=== PATIENT | female | born 1935 | race Caucasian/White ===

== ENCOUNTER → 2018-11-07 | Day surgery (SDC) | payer MEDICARE, OTHER ==
--- NOTE | 2018-11-01 15:16 | Rehab Joint Replacement Pre-Op ---
Rehab Joint Replacement Pre-Op - Pre-Op Visit Reviewed Items Scheduled for Post Op Visit: Yes Scheduled Post Op Visit Date: 11/07/18 Fran Hose/Garment Measure THR - Thigh High: Yes (XX Large regular) Exercise Reviewed: Yes Stair Climbing: Yes Cane/Walker/Crutch Training: Yes Vend Equipment - Cane or Walker and OT Kit: N/A List of Venders in the Area: N/A Shower Chair Transfers: Yes Car Transfers: Yes Bed Transfers: Yes Medical History Forms Issued: N/A Functional Scale Forms Issued: N/A Pre-Operative Intake Form - Scheduled Procedure Type of Surgical Procedure: Total Knee - Right - Patient Living Situation Current Living Situation: Patient Lives Alone Current Housing Situation: One Story Home - Entrance Detail Current Housing Entrance: Hand Rails - Two, Other (3 steps, deck landing, 1 step with 2 handrails) Number of Steps: 4 (total) - Bathroom Detail Bathroom Setup: Walk-In Shower Toilet Setup: Standard Height Toilet, Grab Bars Not Present - Post-Op Home Assistance Pt has meals following surgery?: No Pt has transportation following surgery?: No - Equipment Detail Currently Own/Have Access To: Walker (front wheeled walker), Cane - Work Status Current Work Status: Retired - Additional Detail Patient is scheduled for the following: Inpatient Rehab (Patient would like to go to Rehab as she did for her first total knee. CM notified.)
[~2018-11-07] MED LIST: ACETAMINOPHEN 500 MG TABLET PO ONE; CELECOXIB 100 MG CAPSULE PO ONE; CLINDAMYCIN PHOS/D5W 900MG 900 MG/50 ML BAG IVPB ONE; FAMOTIDINE 20MG TABLET PO ONE; METOCLOPRAMIDE 10 MG TABLET PO ONE; SCOPOLAMINE 1 PATCH TDSY TD ONE; VANCOMYCIN 1GM/200ML PREMIX 1 GM/200 ML PIGGYBACK IVPB ONE
[2018-11-07 06:33] LABS: INR 1.2; PROTHROMBIN TIME (PATIENT) 11.9 SECONDS (9.5-12.1)
[2018-11-07 06:39] LABS: ABO GROUP A; RH TYPE POSITIVE
[2018-11-07 06:53] LABS: ANTIBODY SCREEN NEGATIVE (NEGATIVE)
[2018-11-07 07:38] LABS: URINE APPEARANCE CLEAR; URINE BILIRUBIN NEGATIVE (NEGATIVE); URINE BLOOD TRACE-I (NEGATIVE); URINE COLOR YELLOW; URINE GLUCOSE (UA) NEGATIVE (NEGATIVE); URINE KETONE NEGATIVE (NEGATIVE); URINE LEUKOCYTE ESTERASE TRACE (NEGATIVE); URINE NITRITE POSITIVE (NEGATIVE); URINE PROTEIN NEGATIVE (NEGATIVE); URINE UROBILINOGEN 0.2 E.U./dL (0.20 - 1.00)
[2018-11-07 07:45] LABS: URINE BACTERIA 4+; URINE EPITHELIAL CELLS RARE (FEW); URINE RBC 0 - 2 (NONE SEEN)
== END | disposition home or self-care (01) ==
LOC: SUR 06:04
PROVIDERS: ATTEND Orthopaedic Surgery
DX: Z53.9 Procedure and treatment not carried out, unspecified reason (principal)
CPT/HCPCS: 85730; 85610; 81001; 86900; 86901; 86850; J3370

== ENCOUNTER 2018-11-28 10:10 | Inpatient (IN) | payer MEDICARE, OTHER ==
[~2018-11-28 10:10] MED LIST changes: +ACETAMINOPHEN 1,000 MG/100 ML BTL IVPB ONE
[2018-11-28] MEDS ORDERED: DEXAMETHASONE 4 MG/ML 1ML VIAL IVP ONE (10:11)
[2018-11-28] MEDS ORDERED: TRANEXAMIC ACID 1,000 MG/10 ML ML IV ONE (10:11)
[2018-11-28] MEDS ORDERED: ROPIVACAINE HCL (NAROPIN) /PF 5MG/ML 20ML VIAL IV ONE (10:11)
[2018-11-28 10:37] LABS: INR 1.4; PROTHROMBIN TIME (PATIENT) 14.4 SECONDS (9.5-12.1)
[2018-11-28 11:06] LABS: ABO GROUP A; ANTIBODY SCREEN NEGATIVE (NEGATIVE); RH TYPE POSITIVE
[2018-11-28] MEDS ORDERED: TRAMADOL HCL 50 MG TABLET PO PRN ×2 (12:13)
[2018-11-28] MEDS ORDERED: HYDROCODONE/APAP 5/325MG TABLET PO PRN ×2 (12:13)
[2018-11-28] MEDS ORDERED: AL HYDROX/MAG HYDROX 30ML UD PO PRN (12:13)
[2018-11-28] MEDS ORDERED: DIPHENHYDRAMINE HCL 25 MG CAPSULE PO PRN (12:13)
[2018-11-28] MEDS ORDERED: ZOLPIDEM TARTRATE 5 MG TABLET PO PRN (12:13)
[2018-11-28] MEDS ORDERED: KETOROLAC 30 MG/ML VIAL IVP PRN ×2 (12:13)
[2018-11-28] MEDS ORDERED: ACETAMINOPHEN W/ CODEINE 300MG/60MG TABLET PO PRN ×2 (12:13)
[2018-11-28] MEDS ORDERED: MAGNESIUM HYDROXIDE 30 ML UDC PO PRN (12:13)
[2018-11-28] MEDS ORDERED: ONDANSETRON HCL IV 4 MG/2 ML VIAL IVP PRN (12:13)
[2018-11-28] MEDS ORDERED: PROMETHAZINE HCL 12.5 MG in 0.9 % SODIUM CHLORIDE 100ML 50 ML IVPB PRN (12:13)
[2018-11-28] MEDS ORDERED: METOCLOPRAMIDE HCL 10 MG/2 ML VIAL IVP PRN (12:13)
[2018-11-28] MEDS ORDERED: ACETAMINOPHEN W/ CODEINE 300MG/30MG TABLET PO PRN ×2 (12:13)
[2018-11-28] MEDS ORDERED: HYDROCODONE/APAP 7.5/325MG TABLET PO PRN (12:13)
[2018-11-28] MEDS ORDERED: BISACODYL 10 MG SUPP RC PRN (12:13)
[2018-11-28] MEDS ORDERED: HYDROMORPHONE HCL 2 MG/ML VIAL IM PRN ×2 (12:13)
[2018-11-28] MEDS ORDERED: NALOXONE 0.4 MG/1 ML VIAL IVP PRN (12:13)
[2018-11-28] MEDS ORDERED: 0.9 % SODIUM CHLORIDE 1000ML 1,000 ML IV ONE ×2 (13:11→13:54)
[2018-11-28] MEDS ORDERED: BUPIVACAINE LIPOSOME 266MG/20ML VIAL SQ ONE (13:40)
[2018-11-28] MEDS ORDERED: BUPIVACAINE 0.5% W/EPI MPF 30 ML VIAL SQ ONE (13:40)
[2018-11-28] MEDS ORDERED: SEVOFLURANE 250 ML INH ONE (14:00)
[2018-11-28] MEDS ORDERED: FENTANYL PF 100MCG/2ML VIAL IV ONE (14:00)
[2018-11-28] MEDS ORDERED: LIDOCAINE 2% MDV (20MG/ML) 20ML VIAL IV ONE (14:00)
[2018-11-28] MEDS ORDERED: PROPOFOL 10 MG/ML VIAL IV ONE (14:00)
[2018-11-28] MEDS ORDERED: KETAMINE HCL 100MG/1ML VIAL INJ ONE (14:00)
[2018-11-28] MEDS ORDERED: GLYCOPYRROLATE 0.2 MG/ML ML IV ONE (14:00)
[2018-11-28] MEDS ORDERED: HYDROMORPHONE HCL 2 MG/ML VIAL IV ONE (14:00)
[2018-11-28] MEDS ORDERED: DEXTROSE 5 % AND 0.9 % NACL 1,000 ML IV PRN (14:30)
[2018-11-28] MEDS ORDERED: HYDROMORPHONE HCL 2 MG/ML VIAL IVP ONE (15:10)
[2018-11-28] MEDS: 0.9 % SODIUM CHLORIDE 1000ML 1,000 ML IV SCH (18:02)
[2018-11-28] MEDS: ENOXAPARIN 100 MG/ML SYR SQ SCH (22:05)
[2018-11-28] MEDS: FERROUS SULFATE 325 MG TAB PO SCH (22:07)
[2018-11-28] MEDS: HYDROCODONE/APAP 7.5/325MG TABLET PO PRN (22:07)
[2018-11-28] MEDS: WARFARIN 1 MG TABLET PO SCH (22:07)
[2018-11-28] MEDS: DOCUSATE SODIUM 100 MG CAPSULE PO SCH (22:07)
[2018-11-28] MEDS: SIMVASTATIN 20 MG TABLET PO SCH (22:08)
[2018-11-28] MEDS: VANCOMYCIN 1GM/200ML PREMIX 1 GM/200 ML PIGGYBACK IVPB SCH (22:13)
[2018-11-29] MEDS: 0.9 % SODIUM CHLORIDE 1000ML 1,000 ML IV SCH ×2 (03:45→23:08)
[2018-11-29] MEDS: HYDROCODONE/APAP 7.5/325MG TABLET PO PRN ×3 (04:22→23:08)
[2018-11-29 07:34] LABS: HEMOGLOBIN 9.2 gm/dl (11.6-16.0)
--- NOTE | 2018-11-29 09:47 | Rehab Evaluation ---
Patient Information - Patient Information Diagnosis: R knee OA Ordered Treatment: PT Evaluate and Treat Status: Initial Evaluation Surgery: Yes (R TKA) Date of Surgery: 11/29/18 Past Medical/Surgical Hx: PAST MEDICAL/SURGICAL HISTORY Past Surgical History LTKA 2016 RIGHT SHOULDER REPLACEMENT 2014 RIGHT SHOULDER SCOPE STOMACH EGD'S C SCOPES BILAT KNEE SCOPES PMH - Respiratory Hx Respiratory Disorders Yes Hx Pulmonary Embolism Yes: SEVERAL EPISODES LAST ONE 2005 ON COUMADIN PMH - Cardiovascular Hx Cardiovascular Disorders Yes Hx Deep Vein Thrombosis Yes: HX OF Hx Edema Yes Hx Hypertension Yes: CONTROLLED WITH MEDS Hx Irregular Heartbeat Yes: ONE EPISODE OF A FIB RESOLVED ON ITS OWN 1. 5 YRS AGO Exercise Tolerance Poor PMH - Neuro Hx Neurological Disorders No PMH - GI Hx Gastrointestinal Disorders Yes Hx Ulcer Yes: HX OF A LONG TIME AGO PMH - Hx Genitourinary Disorders Yes Hx Bladder Problem Yes: INCONTINENCE WEARS A PAD Hx Renal Disease Yes: CKD STAGE 3 DX'D Hx Urinary Tract Infection Yes: resolved PMH - Endocrine Hx Endocrine Disorders No PMH - Musculoskeletal Hx Musculoskeletal Disorders Yes Hx Arthritis Yes: RIGHT KNEE POSSIBLY RIGHT HIP Hx Gout Yes: OCCASSIONAL FLARE UP PMH - Psych Hx Psychiatric Problems No PMH - Hematology/Oncology Hx Hematology/Oncology Yes Disorders Hx Bruising Yes: ON COUMADIN Hx Clotting Problems Yes: HX OF PE AND DVT Premorbid Status: Detail (The patient was independent with mobility prior to surgery.) Social History: Detail (The patient lives alone in a 2 story house with 3 steps ,a deck and 1 step at the enterance with two hand rails. The patient's bedrooms and bathrooms are on the main floor. The bathroom is equipped with : walk in shower, shower bench, hand held shower, elevated toilet. No grab bars are present in the bathroom. The patient has a 2 wheeled walker and single point cane.) Precautions: [place], Fall, Other (WBAT on the R LE.) - Time With Patient Total Time Spent With Patient (Min): 30 Treatment Procedures: Detail (Initial Evaluation, low complexity, gait training and instruction in HEP) Subjective Information - Subjective Information Per Patient (The patient had complaints of R hip initially but no complaints of knee pain.) Objective Data - Mental Status Patient Orientation: Oriented x3 - Visual Perception Appears within normal limits for therapeutic activities - ROM Not within normal limits (The patient's R knee AROM is limited s/p as to be expected. All other AROM is WNL.) - Strength/Tone Not within normal limits (The patient's R LE strength was not tested s/p surgery however functionally, weakness is noted in quadriceps and hip flexors (patient has difficulty completing a SLR). The patient's L LE strength was WFL.) - Bed Mobility Independent (The patient was independent with supine to sit and required minimal assist to lift R LE with sit to supine.) - Transfers Independent (The patient was independent with sit to and from stand transfer.) - Balance Balance Sitting: Good Balance Standing: Good - Sensation Intact - Gait Detail (The patient ambulated with front wheeled walker a distance of 25 feet x 1 WBAT on the R LE with supervision/ assist of 1 to handle equipment only with shortness of breath noted.) Therapy Assessment - Therapy Assessment Detail (The patient ambulated household distances with supervision and increased fatigue after ambulation. The patient required min. assist with sit to supine. Feel the patient will progress well with mobility as her endurance for physical activity improves.) Patient Education - Patient Education Teaching Topic: Exercise/Activity (The patient completed TKA exercises included: ankle pumps, quad sets, hamstring sets, gluteal sets , heel slides and assisted SLR with use of strap.) Response: Return Demonstration Teaching Method: Demonstration, Handout Teaching Recipient: Patient Barriers To Learning: Age Related Problem List - Problem List Physical Therapy Problem List: Detail (1)Decreased ability to complete prolonged physical activity 2) Decreased R knee AROM and strength 3) Impaired ambulation s/p surgery) Goals - Goals Physical Therapy Goals: 1) The patient will ambulate on stairs with supervision/CG for safety using proper technique. 2) The patient will ambulate 100 feet with WBAT on the R LE independently with front wheeled walker. Prognosis - Prognosis Good Plan - Plan Physical Therapy Plan: PT 1-3 sessions for gait training on levels and stairs.
[2018-11-29] MEDS: FERROUS SULFATE 325 MG TAB PO SCH ×2 (10:00→21:51)
[2018-11-29] MEDS: METOPROLOL SUCC 50 MG TABLET PO SCH (10:00)
[2018-11-29] MEDS ORDERED: RIVAROXABAN 10 MG TABLET PO SCH (10:00)
[2018-11-29] MEDS: BUMETANIDE 1 MG TABLET PO SCH (10:00)
[2018-11-29] MEDS: DOCUSATE SODIUM 100 MG CAPSULE PO SCH ×2 (10:00→21:51)
[2018-11-29] MEDS: VANCOMYCIN 1GM/200ML PREMIX 1 GM/200 ML PIGGYBACK IVPB SCH (10:33)
--- NOTE | 2018-11-29 12:08 | Rehab Evaluation ---
Patient Information - Patient Information Diagnosis: R knee OA Ordered Treatment: OT Evaluate and Treat Status: Initial Evaluation Surgery: Yes (R TKA) Date of Surgery: 11/29/18 Past Medical/Surgical Hx: PAST MEDICAL/SURGICAL HISTORY Past Surgical History LTKA 2016 RIGHT SHOULDER REPLACEMENT 2014 RIGHT SHOULDER SCOPE STOMACH EGD'S C SCOPES BILAT KNEE SCOPES PMH - Respiratory Hx Respiratory Disorders Yes Hx Pulmonary Embolism Yes: SEVERAL EPISODES LAST ONE 2005 ON COUMADIN PMH - Cardiovascular Hx Cardiovascular Disorders Yes Hx Deep Vein Thrombosis Yes: HX OF Hx Edema Yes Hx Hypertension Yes: CONTROLLED WITH MEDS Hx Irregular Heartbeat Yes: ONE EPISODE OF A FIB RESOLVED ON ITS OWN 1. 5 YRS AGO Exercise Tolerance Poor PMH - Neuro Hx Neurological Disorders No PMH - GI Hx Gastrointestinal Disorders Yes Hx Ulcer Yes: HX OF A LONG TIME AGO PMH - Hx Genitourinary Disorders Yes Hx Bladder Problem Yes: INCONTINENCE WEARS A PAD Hx Renal Disease Yes: CKD STAGE 3 DX'D Hx Urinary Tract Infection Yes: resolved PMH - Endocrine Hx Endocrine Disorders No PMH - Musculoskeletal Hx Musculoskeletal Disorders Yes Hx Arthritis Yes: RIGHT KNEE POSSIBLY RIGHT HIP Hx Gout Yes: OCCASSIONAL FLARE UP PMH - Psych Hx Psychiatric Problems No PMH - Hematology/Oncology Hx Hematology/Oncology Yes Disorders Hx Bruising Yes: ON COUMADIN Hx Clotting Problems Yes: HX OF PE AND DVT Premorbid Status: Detail (The patient was independent with all ADLs and functional mobility and driving prior to surgery.) Social History: Detail (The patient lives alone in a 2 story house with 3 steps, a deck and 1 step at the enterance with bilateral hand rails that are narrow enough to hold onto both. The patient's bedrooms and bathrooms are on the main floor. The bathroom is equipped with a walk in shower, shower bench, hand held shower, elevated toilet. No grab bars are present in the bathroom. The patient has a 2 wheeled walker and single point cane. She also has a blueprinter.) Precautions: [place], Fall, Other (WBAT on the R LE.) - Time With Patient Total Time Spent With Patient (Min): 33 (1 eval, 1 adl) Treatment Procedures: Detail (OT eval: low complexity) Subjective Information - Subjective Information Per Patient (Ok to see per [facility], Pt agreeable to OT eval and Tx.) Objective Data - Pain Pain Present: Yes Pain Scale Used: Numeric (1 - 10) (4-5/10, RN present and offering pain meds) - Mental Status Patient Orientation: Oriented x3 - Visual Perception Appears within normal limits for therapeutic activities - ROM Not within normal limits (L UE WNL, R shld ~35* flexion and abduction d/t previous shld Sx otherwise WNL) - Strength/Tone Within normal limits - Coordination Appears within normal limits for therapeutic activities - Bed Mobility Independent (With increased effort for EOB >< supine and for laterally scooting toward HOB in supine with verbal instruction for technique.), Needs Assist - Transfers Independent (Sit to stand from low surfaces to FWW with MIN assist and increased effort.) - Balance Balance Sitting: Fair (While donning/doffing socks at EOB) Balance Standing: Fair (Standing pant mgmt with alternating uni support on walker.) - Sensation Intact - Gait Detail (Functional mobility within bedroom with supervision and FWW.) - ADL's/IADL's Detail (OT educated Pt on adaptive techniques for LB dressing, Pt requires verbal instruction throughout for problem solving as well as tactile cueing for use of sock aide post demonstration. OT educated Pt on safety with bathroom and kitchen safety as well as general safety precautions at home, Pt verbalizes understanding.) Therapy Assessment - Therapy Assessment Detail (Pt continues to require MIN assist grossly, independent at baseline living alone without a willing/able caregiver. May benefit from [facility] vs. home with [facility] pending progress.) Patient Education - Patient Education Teaching Topic: Equipment Use Response: Return Demonstration, Reinforcement Needed, Verbalize Understanding Teaching Method: Discussion, Demonstration Teaching Recipient: Patient Barriers To Learning: None Problem List - Problem List Physical Therapy Problem List: Detail (1)Decreased ability to complete prolonged physical activity 2) Decreased R knee AROM and strength 3) Impaired ambulation s/p surgery) Occupational Therapy Problem List: Detail (1. Pt requires assist for functional TFs from low surfaces and has a low toilet at home. 2. Pt requires assist for LB dressing. 3. Pt demos SOB during functional tasks, however is not aware of/ does not initiate energy conservation strategies) Goals - Goals Physical Therapy Goals: 1) The patient will ambulate on stairs with supervision/CG for safety using proper technique. 2) The patient will ambulate 100 feet with WBAT on the R LE independently with front wheeled walker. Occupational Therapy Goals: 1. Pt will be MOD I with functional TFs from low surfaces with FWW 2. Pt will be MOD I with LB dressing, using AE as needed. 3. Pt will demo self-initiation of energy conservation and breathing strategies when feeling SOB throughout Tx. Prognosis - Prognosis Good Plan - Plan Physical Therapy Plan: PT 1-3 sessions for gait training on levels and stairs. Occupational Therapy Plan: OT 1-2 session to address goals.
[2018-11-29] MEDS: CELECOXIB 100 MG CAPSULE PO SCH (12:59)
--- NOTE | 2018-11-29 13:37 | Physical Therapy Tx Note ---
Physical Therapy Tx Note - Treatment Note Physical Therapy Tx Note: Detail (Patient refused to ambulate in [facility] this a fternoon.) Physical Therapy Problem List: Detail (1)Decreased ability to complete prolonged physical activity 2) Decreased R knee AROM and strength 3) Impaired ambulation s/p surgery) Physical Therapy Goals: 1) The patient will ambulate on stairs with supervision/CG for safety using proper technique. 2) The patient will ambulate 100 feet with WBAT on the R LE independently with front wheeled walker. Physical Therapy Plan: PT 1-3 sessions for gait training on levels and stairs.
--- NOTE | 2018-11-29 15:30 | Operative Note ---
DATE OF SURGERY: 11/28/2018 PREOPERATIVE DIAGNOSIS: End-stage right knee arthrosis. POSTOPERATIVE DIAGNOSIS: End-stage right knee arthrosis. OPERATION: Right total knee arthroplasty. SURGEON: Eze Billy MD ANESTHESIA: Spinal. ANESTHESIA PROVIDER: ITALIA Holden COMPLICATIONS: None. ESTIMATED BLOOD LOSS: Minimal, 100 mL. TOURNIQUET TIME: No tourniquet. OPERATIVE FINDINGS: Ksfu-sk-jice medial compartment arthrosis. COMPONENTS PLACED: A [employer]hew Journey II Oxinium total knee arthroplasty system, size 6 femoral component, Oxinium size 4 tibial baseplate, a 13 mm tibial poly insert, and 29 mm cemented patellar component. INDICATIONS: This is an 83-year-old female who is well known to me. She is status post multiple procedures by me including shoulder arthroscopy, total shoulder replacement, total knee replacement on the other side years ago. 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 The patient had also in addition undergone approximately a week of bridging from her Coumadin to Lovenox in preparation for the procedure and getting cleared for the procedure that I felt was unnecessarily canceled. Had a re-procedure, she has been scheduled, she has had a positive UA but she had no symptoms at the time, wanted to proceed; however, they would not proceed. Therefore, she was rescheduled. I explained and proceeded with giving her gentamicin as well as normal antibiotics given the chronic nature and asymmetric bacteremia she has. I explained all risks and benefits in detail for the diagnosis and procedure including but not limited to infection, nerve injury, vessel injury, persistent pain, stiffness, numbness, tingling in the knee, periprosthetic fracture, need for resection arthroplasty if components become infected or loosen, nerve injury, vessel injury, blood clot, need for anticoagulation to prevent blood clots and risks associated with these medications, and need for further procedures. All his questions were answered. Rehab and healing course was outlined. She agreed to proceed. PROCEDURE: The patient brought to the OR, placed in the supine position, prepped for surgery. Spinal anesthesia induced. The right lower extremity and knee were prepped and draped in sterile fashion. Right knee prepped again with Chloraprep after it was draped. Intraoperative timeout was performed. The leg was exsanguinated with Esmarch. It was infiltrated with 0.5% Marcaine with epinephrine. No tourniquet was used. Skin and subcutaneous tissue dissected down to the capsule and cauterized carefully each layer with our Aquamantys in this tourniquet-less procedure. Incised the capsule medially around the medial border of the patella to the tibial tubercle. Incised the vastus medialis in line with its fibers in a mid vastus approach. Everted the patella, partially resected the retropatellar fat pad, elevated the capsule subperiosteally and medially, and flexed the knee. She had [id number] medial component arthrosis. Then inserted the intramedullary drill guide and then inserted intramedullary guide lico, the 6-degree cutting block. Aligned the distal femoral condyles, pinned it in position, +2 mm position, cut the distal femoral condyles. Through the previously-placed pin sites, we placed the 5-in-1 cutting jig, dialed the anterior cut so it would come out flush without notching. We cut that cut, and it was a good flush cut. Then pinned it and cut the remainder of the chamfer cuts in the usual fashion. Next, placed the femoral trial femur, centered it, pinned it, removed osteophytes off the periphery. Inserted the resection collet and reamed out and box osteotomed the cruciate bone block. Next, attention was turned to the tibia. Exposed the tibia, seated the external alignment jig spikes in the tubercular groove 2 fingerbreadths distally and made a reference for a 7 mm cut off the higher medial plateau. We then pinned the cutting jig provisionally to the anterior-posterior pins. We alignment of the cutting jig using a drop lico centered on the tibial anatomic axis and then cross-pinned completing fixation, and cut the tibia. Next, we used a curved osteotome, removed osteophytes off the posterior condyles and basically checked the flexion/extension gaps with the insert. We basically sized up to a size 13. This allowed for 2-3 mm of varus/valgus laxity in flexion/extension. Overall alignment of cuts in extension was anatomic valgus orientation with alignment lico centered on the hip joint and ankle joint. Next, took the knee in flexion and sized the tibial baseplate. Size of tibial baseplate was size 4. Replaced all trial components, set the rotation tibial baseplate again extension using the alignment lico centered on hip joint and ankle joint. Marked josué on the anterior tibial cortex off the laser josué. Attention was turned to the patella, measured the patella, set the cutting jig to allow for a 9 mm cut on the patella, cut it, and remeasured it. It was right on. Chamfered off lateral patellar facet, medialized as much as possible, drilled 3 peg holes, sized it to be 29 mm. We did a trial range of motion. Patella tracked nicely hands free. Mixed cement. Next, placed a bone plug in the femoral canal hole with the drill bit. Next we started with the tibial baseplate, made the tibial cut, pinned it, and drilled out, keel punched the keel hole. Next, then placed a bone plus in the femoral canal and the drill in the tibial keel hole and changed gloves, brought in clean sheet. Copiously irrigated bony surfaces, pulse lavage, antibiotic solution and precut bolsters and packed down the femoral component and then with precut bolsters packed down the tibial component removing excess cement in the femoral component, removing excess cement. Placed the trial tibial poly liner, held the knee in extension, clamped down the patella component until the cement hardened removing excess cement. Next, took the knee in flexion, distracted the knee with the bone hook and sponge. We cauterized the posterior capsule using alexsander Ansari. We then injected our 0.5% Marcaine with epinephrine, tranexamic acid, and Exparel mixture in the posterior capsule medial and lateral working out superficially subcutaneous vastus medialis. Next, closed the capsule in flexion using running #2 quill suture again cauterizing and then closed skin with several buried 2-0 Vicryl securely. Placed a provisional dressing with Acticoat. It will be changed to MALINA dressing prior to discharge, likely in 3 days to rehab. Sterile dressing applied. Jesus wrap. The patient tolerated the procedure well. No intraoperative complications. Sponge, needle, and blade counts correct. Recovery stable, neurovascularly intact. Discharged to the floor. Follow up in 2 weeks after discharge rehab. LIU
[2018-11-29] MEDS ORDERED: VANCOMYCIN HCL 1 GM VIAL IVPB ONE (16:05)
[2018-11-29] MEDS: SIMVASTATIN 20 MG TABLET PO SCH (21:51)
[2018-11-29] MEDS: ENOXAPARIN 100 MG/ML SYR SQ SCH (21:52)
[2018-11-29] MEDS: WARFARIN 1 MG TABLET PO SCH (21:52)
[2018-11-30] MEDS: 0.9 % SODIUM CHLORIDE 1000ML 1,000 ML IV SCH ×4 (05:01→16:45)
[2018-11-30 06:52] LABS: HEMATOCRIT 27.7 % (35.0-47.0); HEMOGLOBIN 8.2 gm/dl (11.6-16.0)
[2018-11-30] MEDS: HYDROCODONE/APAP 7.5/325MG TABLET PO PRN (06:58)
[2018-11-30] MEDS: METOPROLOL SUCC 50 MG TABLET PO SCH (09:32)
[2018-11-30] MEDS: FERROUS SULFATE 325 MG TAB PO SCH ×2 (09:32→21:25)
[2018-11-30] MEDS: DOCUSATE SODIUM 100 MG CAPSULE PO SCH ×2 (09:32→21:26)
[2018-11-30] MEDS: CELECOXIB 100 MG CAPSULE PO SCH (09:33)
[2018-11-30 09:57] LABS: INR 2.1; PROTHROMBIN TIME (PATIENT) 21.3 SECONDS (9.5-12.1)
--- NOTE | 2018-11-30 12:02 | Physical Therapy Tx Note ---
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 Patient states right knee is feeling a little better today. Patient transferred supine to sit independently. Patient donned pants and shoes independently. Patient transferred sit to and from stand from elevated bed CGA x1. Patient ambulated 13 feet x2 with wheeled walker CGA x1. Patient transferred sit to and from stand CGA x1. Patient ambulated 50 feet with wheeled walker CGA x1. Patient required several standing rest breaks with ambulation due to shortness of breath. Patient transferred sit to supine CGA x1 to support right LE. Patient scooted up in bed min assist x1 to prevent left LE from sliding. Patient performed the following exercises x5 reps each: ankle pumps, quad sets, glut squeezes, heel slides, hamstring sets, and SLR with strap assist. Patient required several rest breaks throughout treatment due to shortness of breath and fatigue. Patient reports feeling tired after treatment. Patient was left reclined in bed with call light within reach.) Physical Therapy Problem List: Detail (1)Decreased ability to complete prolonged physical activity 2) Decreased R knee AROM and strength 3) Impaired ambulation s/p surgery) Physical Therapy Goals: 1) The patient will ambulate on stairs with supervision/CG for safety using proper technique. 2) The patient will ambulate 100 feet with WBAT on the R LE independently with front wheeled walker. Prognosis: Good Physical Therapy Plan: PT 1-3 sessions for gait training on levels and stairs.
[2018-11-30] MEDS: ACETAMINOPHEN 325 MG TAB PO PRN (12:59)
--- NOTE | 2018-11-30 13:08 | RADIOLOGY REPORT ---
EXAM: CHEST, ONE VIEW HISTORY: REHAB FACILITY PLACEMENT. TECHNIQUE: Two upright PA views of the chest are obtained. Comparison: None. FINDINGS: There is mild elevation of the right hemidiaphragm. The heart is not enlarged and the pulmonary vasculature is nondilated. The thoracic aorta is tortuous and atherosclerotic. Surgical clips are noted at the level of the gastroesophageal junction. No lung consolidation, costophrenic angle blunting or pneumothorax. Thin linear opacity in the lateral mid to lower left lung is consistent with scarring or atelectasis. There are degenerative changes of the visualized spine. Reversed right glenohumeral arthroplasty changes are identified, incompletely imaged without evidence of complication. IMPRESSION: 1. NO RADIOGRAPHIC EVIDENCE OF ACUTE CARDIOPULMONARY DISEASE. 2. MINOR LINEAR SCARRING VERSUS ATELECTASIS IN THE LATERAL MID TO LOWER LEFT LUNG. 3. MILD ELEVATION OF THE RIGHT HEMIDIAPHRAGM. JOB NUMBER: [id number] MTDD
[2018-11-30] MEDS: WARFARIN 1 MG TABLET PO SCH (21:26)
[2018-11-30] MEDS: SIMVASTATIN 20 MG TABLET PO SCH (21:26)
[2018-12-01] MEDS: 0.9 % SODIUM CHLORIDE 1000ML 1,000 ML IV SCH ×2 (02:08→08:42)
[2018-12-01 06:33] LABS: HEMATOCRIT 27.1 % (35.0-47.0); HEMOGLOBIN 8.1 gm/dl (11.6-16.0); MEAN CELL VOLUME 104.2 fl (81-97); MEAN CORPUSCULAR HGB CONC 29.9 g/dl (32-36); MEAN PLATELET VOLUME 11.6 fl (7.4-10.4); PLATELET COUNT 207 K/uL (130-400); RED CELL DISTRIBUTION WIDTH 14.5 % (11.5-14.5); WHITE BLOOD COUNT W/O DIFF 9.6 K/uL (4.2-12.2)
[2018-12-01 06:37] LABS: MEAN CORPUSCULAR HEMOGLOBIN 31.1 pg (27-33)
[2018-12-01 06:48] LABS: CREATININE 1.2 mg/dL (0.5-0.9)
[2018-12-01] MEDS: BUMETANIDE 1 MG TABLET PO SCH (09:11)
[2018-12-01] MEDS: CELECOXIB 100 MG CAPSULE PO SCH (09:14)
[2018-12-01] MEDS: DOCUSATE SODIUM 100 MG CAPSULE PO SCH (09:14)
[2018-12-01] MEDS: METOPROLOL SUCC 50 MG TABLET PO SCH (09:14)
[2018-12-01] MEDS: FERROUS SULFATE 325 MG TAB PO SCH (09:14)
[2018-12-01] MEDS: ACETAMINOPHEN 325 MG TAB PO PRN (12:18)
== END 2018-12-01 12:50 | DRG 470 ==
LOC: MEDSURG 10:10 → SUR 10:10 → EDSTATUS 12:00 → MEDSURG 15:50 → SUR 15:50
PROVIDERS: ADMIT Orthopaedic Surgery; ATTEND Orthopaedic Surgery
PROC: 0SRC0J9 Replacement of Right Knee Joint with Synthetic Substitute, Cemented, Open Approach (ICD-10-PCS; principal; 2018-11-28 12:00)
DX: M17.11 Unilateral primary osteoarthritis, right knee (principal); I10 Essential (primary) hypertension; E78.00 Pure hypercholesterolemia, unspecified; I48.91 Unspecified atrial fibrillation; Z79.01 Long term (current) use of anticoagulants; R60.9 Edema, unspecified; E78.5 Hyperlipidemia, unspecified; Z86.718 Personal history of other venous thrombosis and embolism; N19 Unspecified kidney failure
CPT/HCPCS: 71045; 76942; 80048; 85014; 85018; 85027; 85610; 85730; 86850; 86900; 86901; 94760; J1650; J3370; J3490; J7030